=== PATIENT | female | born 1950 | race Caucasian/White ===

== ENCOUNTER 2017-04-17 11:06 | Day surgery (SDC) | payer OTHER ==
[~2017-04-17] VITALS: Ht 170.2 cm; Wt 66.5 kg
[~2017-04-17 11:06] MED LIST: ALBU17IN INH; AVEL1TAB3 PO; HYDR25TAB PO; METO50TA7 PO; NICO14DI3 TD; OFLOXACIN 0.3 % (OCUFLOX) OPTH SOL 5ML OD ONE; PHENYLEPHRINE 2.5% OPHTH SOL 2ML OD ONE; PRED20TAB PO; PROPARACAINE 0.5% OPHTH SOL 15ML OD ONE; SPIR1CAP INH; TROPICAMIDE 1% OPHTH SOLN 2ML OD ONE
[2017-04-17] MEDS ORDERED: PROAAER10 INH (13:05)
[2017-04-17] MEDS ORDERED: POVIDONE-IODINE 5% OPHTH PREP SOL 30ML As Ordered ONE (13:21)
[2017-04-17] MEDS ORDERED: BALANCED SALT IRRIGATION SOLUTION 500ML BAG (FOR OR EYE MACHINE) As Ordered ONE (13:21)
[2017-04-17] MEDS ORDERED: ACETYLCHOLINE OPHTH SOLN 1% 2ML (MIOCHOL-E) As Ordered ONE (13:21)
[2017-04-17] MEDS ORDERED: DUOVISC (0.50ML VISCOAT/0.55ML PROVISC) OPHTH KIT As Ordered ONE (13:22)
[2017-04-17] MEDS ORDERED: CEFUROXIME 1MG/0.1ML INTRACAMERAL INJ As Ordered ONE (13:22)
[2017-04-17] MEDS ORDERED: LIDOCAINE 0.75%/EPINEPHRINE 0.025% IN BSS 1ML SYR INTRACAMERAL (OR ONLY) As Ordered ONE (13:22)
[2017-04-17] MEDS ORDERED: MIDAZOLAM INJ 2 MG/2 ML VIAL (J2250) As Ordered ONE (13:27)
[2017-04-17] MEDS ORDERED: fentaNYL 100 MCG/2 ML INJECTION (J3010) As Ordered ONE (13:27)
[2017-04-17 14:35] VITALS: BP 186/98
--- NOTE | 2017-04-19 10:38 | RO ---
DATE OF PROCEDURE: 04/17/2017 PREOPERATIVE DIAGNOSIS: Visually significant nuclear sclerotic cataract right eye. POSTOPERATIVE DIAGNOSIS: Visually significant nuclear sclerotic cataract right eye. PROCEDURE: Cataract extraction with use of phacoemulsification and placement of intraocular lens, AU00T0, 22.5, right eye. SURGEON: Marcos Renee DO UTILITY MAINTENANCE WORKER: ANESTHESIA: Local with monitored anesthesia care (MAC). COMPLICATIONS: None. POSTOPERATIVE CONDITION: Stable. INDICATION FOR SURGERY: Blurred vision right eye affecting patient's activities of daily living. DESCRIPTION OF PROCEDURE: The patient was seen in the preoperative area and properly identified. The correct operative eye was identified and marked. Attention was turned to that eye. The patient received topical antibiotics in the preoperative area. The patient then received topical dilating drops consisting of tropicamide and phenylephrine. The patient was then transferred to the operating room. The correct side was re-identified. The patient received topical anesthetics and antibiotics on the surface of the eye. The eye was prepped and draped in a sterile fashion. The upper and lower eyelids were isolated with Tegaderm tape, and the lids were held open with an adjustable speculum. Using a sideport blade, a paracentesis incision was made. Intraocular preservative-free lidocaine was then injected into the anterior chamber. Viscoelastic was then injected into the anterior chamber through the paracentesis. Using a 2.4 mm sharp-tipped keratome, the anterior chamber was entered via a temporal clear corneal incision. A continuous curvilinear capsulorrhexis was created with the aid of a 26-gauge cystotome and Utrata forceps. Hydrodissection was performed with balanced salt solution (BSS) on a blunt cannula until the nucleus was freely mobile. The crystalline lens was phacoemulsified and aspirated. Additional cohesive viscoelastic was placed into the capsular bag to deepen it. A AU00T0, 22.5 lens was placed into the capsular bag and confirmed by visualizing the continuous curvilinear capsulorrhexis. Additional irrigation and aspiration was used to remove cortical material and remaining viscoelastic. The clear corneal incision was hydrated with BSS on a blunt cannula. The lens was well positioned. The incisions were then tested for leaks and found to be negative. The eye was then palpated for appropriate pressure and adjusted accordingly with BSS. The eyelid speculum was carefully removed. A shield was placed. The patient tolerated the procedure well and was discharged to the recovery unit in a stable condition. MTDD
== END 2017-04-17 14:45 | disposition home or self-care (01) ==
LOC: M SDC 11:06
PROVIDERS: ATTEND Ophthalmology
DX: H25.11 Age-related nuclear cataract, right eye (principal); K58.8 Other irritable bowel syndrome; L40.8 Other psoriasis; F17.210 Nicotine dependence, cigarettes, uncomplicated; Z79.51 Long term (current) use of inhaled steroids; Z88.8 Allergy status to other drugs, medicaments and biological substances
CPT/HCPCS: 66984; J2250; J3010; V2632

== ENCOUNTER 2017-08-14 20:08 | Emergency (ER) | payer OTHER, MEDICARE ==
[2017-08-14 20:37] LABS: BASO # 0.1 10^3/uL (0.0-0.2); BASO % 0.9 % (0.0-1.0); EOS % 0.2 % (0.0-3.0); HEMOGLOBIN 14.1 g/dl (12.0-16.0); IMMATURE GRANULOCYTE % 0.5 % (0-3.0); LYMPH # 0.9 10^3/uL (1.5-4.5); LYMPH % 9.5 % (24.0-44.0); MEAN CORPUSCULAR HEMOGLOBIN 32.7 pg (27.0-33.0); MEAN CORPUSCULAR HGB CONC 34.4 g/dl (32.0-36.5); MEAN CORPUSCULAR VOLUME 95.1 fl (80.0-96.0); MONO # 0.5 10^3/uL (0.0-0.8); MONO % 5.6 % (0.0-5.0); NEUTROPHILS # 7.8 10^3/uL (1.8-7.7); NEUTROPHILS % 83.3 % (36.0-66.0); PLATELET COUNT, AUTOMATED 185 10^3/uL (150-450); RED BLOOD COUNT 4.31 10^6/uL (4.00-5.40); RED CELL DISTRIBUTION WIDTH 11.9 % (11.5-14.5); WHITE BLOOD COUNT 9.4 10^3/uL (4.0-10.0)
[2017-08-14 20:40] LABS: KETONE, URINE AUTO RFX TRACE mg/dL (NEGATIVE); LEUKOCYTE ESTERASE UR AUTO RFX NEGATIVE (NEGATIVE); NITRITE, URINE AUTO RFX NEGATIVE (NEGATIVE); RBC, URINE AUTO RFX 1 /HPF (0-3); SPECIFIC GRAVITY UR AUTO RFX 1.004 (1.002-1.035); SQUAM EPITHELIAL CELL UR AURFX 0 /HPF (0-6); WBC, URINE AUTO RFX 1 /HPF (0-3)
[2017-08-14] MEDS: NS 1,000 ML IV (20:45)
[2017-08-14 20:46] LABS: INR 0.95; PROTHROMBIN TIME 12.7 SECONDS (12.4-14.5)
[2017-08-14 21:01] LABS: ALBUMIN 4.4 GM/DL (3.2-5.2); ALBUMIN/GLOBULIN RATIO 1.38 (1.00-1.93); ALKALINE PHOSPHATASE 93 U/L (45-117); ALT/SGPT 28 U/L (12-78); ANION GAP 7 MEQ/L (8-16); AST/SGOT 26 U/L (7-37); BILIRUBIN,DIRECT 0.2 MG/DL (0.0-0.2); BILIRUBIN,TOTAL 0.5 MG/DL (0.2-1.0); BLOOD UREA NITROGEN 12 MG/DL (7-18); CARBON DIOXIDE LEVEL 29 MEQ/L (21-32); CHLORIDE LEVEL 100 MEQ/L (98-107); CREATININE FOR GFR 0.62 MG/DL (0.55-1.30); GLOMERULAR FILTRATION RATE > 60.0 (>45); GLUCOSE, FASTING 100 MG/DL (70-100); LIPASE 253 U/L (73-393); POTASSIUM SERUM 3.9 MEQ/L (3.5-5.1); SODIUM LEVEL 136 MEQ/L (136-145); TOTAL PROTEIN 7.6 GM/DL (6.4-8.2)
[2017-08-14] MEDS: ONDANSETRON 4MG/2ML VIAL (J2405) IV (21:16)
[2017-08-14] MEDS: MORPHINE 2 MG/ML 1ML SYRINGE (J2270) IV ×3 (21:19→22:18)
[2017-08-14] MEDS: KETOROLAC 30 MG/ML VIAL (J1885) IV (21:20)
[2017-08-14] MEDS: LABETALOL HCL 100 MG/20 ML VIAL IV (21:33)
[2017-08-14] MEDS: NORCO 5/325MG TABLET (BULK FOR ED) PO (21:45)
== END 2017-08-14 22:53 | disposition home or self-care (01) ==
LOC: M ED 20:08
DX: N20.1 Calculus of ureter (principal); I10 Essential (primary) hypertension; I25.10 Atherosclerotic heart disease of native coronary artery without angina pectoris; Z88.8 Allergy status to other drugs, medicaments and biological substances
CPT/HCPCS: J2405

== ENCOUNTER → 2017-08-20 | Outpatient (REF) | payer OTHER, MEDICARE ==
[2017-08-20 13:22] LABS: AMORPHOUS SEDIMENT SMALL (NEGATIVE); APPEARANCE, URINE HAZY (CLEAR); BACTERIA, URINE AUTO 1+ (NEGATIVE); BILIRUBIN, URINE AUTO NEGATIVE (NEGATIVE); BLOOD, URINE BLOOD 1+ (NEGATIVE); COLOR, URINE YELLOW (YELLOW); GLUCOSE, URINE (UA) AUTO NEGATIVE (NEGATIVE); KETONE, URINE AUTO NEGATIVE (NEGATIVE); LEUKOCYTE ESTERASE, URINE AUTO TRACE (NEGATIVE); NITRITE, URINE AUTO NEGATIVE (NEGATIVE); PROTEIN, URINE AUTO 1+ mg/dL (NEGATIVE); RBC, URINE AUTO 2 /HPF (0-3); SPECIFIC GRAVITY URINE AUTO 1.006 (1.002-1.035); SQUAMOUS EPITHELIAL CELL UR AU 5 /HPF (0-6); UROBILINOGEN, URINE AUTO 0.2 mg/dL (0.0-2.0); WBC, URINE AUTO 8 /HPF (0-3)
== END ==
LOC: M SMT 12:36
DX: N20.0 Calculus of kidney (principal)
CPT/HCPCS: 81001

== ENCOUNTER → 2017-10-03 | Outpatient (CLI) | payer OTHER | LOC: M RAD 09:27 | DX: I71.4 Abdominal aortic aneurysm, without rupture (principal) | CPT/HCPCS: 76775 ==

== ENCOUNTER → 2018-03-12 | Outpatient (CLI) | payer OTHER | LOC: M RAD 09:56 | DX: I71.4 Abdominal aortic aneurysm, without rupture (principal) | CPT/HCPCS: 76775 ==

== ENCOUNTER → 2018-04-16 | Outpatient (CLI) | payer OTHER | LOC: M RAD 10:54 | DX: I70.213 Atherosclerosis of native arteries of extremities with intermittent claudication, bilateral legs (principal); Z95.820 Peripheral vascular angioplasty status with implants and grafts | CPT/HCPCS: 93925 ==

== ENCOUNTER → 2018-05-04 | Outpatient (CLI) | payer OTHER ==
[~2018-05-04] MED LIST changes: -ALBU17IN INH; -AVEL1TAB3 PO; +HEPARIN 1,000 UNITS/ML 10ML VIAL (FOR RADIOLOGY& DIALYSIS ONLY) As Ordered; -HYDR25TAB PO; +ISOVUE-300 61% 50ML VIAL (Q9967) As Ordered; +LIDOCAINE 2% MDV 20 ML VIAL As Ordered; -METO50TA7 PO; +MIDAZOLAM INJ 2 MG/2 ML VIAL (J2250) As Ordered; -NICO14DI3 TD; -OFLOXACIN 0.3 % (OCUFLOX) OPTH SOL 5ML OD ONE; -PHENYLEPHRINE 2.5% OPHTH SOL 2ML OD ONE; -PRED20TAB PO; -PROPARACAINE 0.5% OPHTH SOL 15ML OD ONE; -SPIR1CAP INH; -TROPICAMIDE 1% OPHTH SOLN 2ML OD ONE; +fentaNYL 100 MCG/2 ML INJECTION (J3010) As Ordered
[2018-05-04 08:29] LABS: MEAN CORPUSCULAR HEMOGLOBIN 33.2 pg (27.0-33.0); MEAN CORPUSCULAR VOLUME 94.8 fl (80.0-96.0); PLATELET COUNT, AUTOMATED 177 10^3/uL (150-450); RED BLOOD COUNT 4.22 10^6/uL (4.00-5.40); RED CELL DISTRIBUTION WIDTH 12.1 % (11.5-14.5); WHITE BLOOD COUNT 9.3 10^3/uL (4.0-10.0)
[2018-05-04 08:47] LABS: ANION GAP 12 MEQ/L (8-16); BLOOD UREA NITROGEN 17 MG/DL (7-18); CALCIUM LEVEL 8.8 MG/DL (8.8-10.2); CARBON DIOXIDE LEVEL 26 MEQ/L (21-32); CHLORIDE LEVEL 89 MEQ/L (98-107); CREATININE FOR GFR 1.29 MG/DL (0.55-1.30); GLUCOSE, FASTING 89 MG/DL (70-100); POTASSIUM SERUM 3.5 MEQ/L (3.5-5.1); SODIUM LEVEL 127 MEQ/L (136-145)
== END | disposition home or self-care (01) ==
LOC: M IRPRO 07:46
DX: I70.213 Atherosclerosis of native arteries of extremities with intermittent claudication, bilateral legs (principal); N18.9 Chronic kidney disease, unspecified; I71.4 Abdominal aortic aneurysm, without rupture
CPT/HCPCS: 36200

== ENCOUNTER → 2018-07-13 | Outpatient (CLI) | payer MEDICARE ==
[~2018-07-13] MED LIST changes: +ALBU17IN INH; +AMLO10TA5 PO; +ASPI81TA21 PO; +AVEL1TAB3 PO; +CLON0.2T PO; -HEPARIN 1,000 UNITS/ML 10ML VIAL (FOR RADIOLOGY& DIALYSIS ONLY) As Ordered; +HYDR25TAB PO; -ISOVUE-300 61% 50ML VIAL (Q9967) As Ordered; -LIDOCAINE 2% MDV 20 ML VIAL As Ordered; +LOPR1TAB6 PO; +LOSA100T5 PO; +LOSA25TA14 PO; +METO50TA7 PO; -MIDAZOLAM INJ 2 MG/2 ML VIAL (J2250) As Ordered; +NICO14DI3 TD; +NORCOTAB PO; +PRED20TAB PO; +PROAAER10 INH; +SPIR1CAP INH; +ZOFR4TAB14 PO; -fentaNYL 100 MCG/2 ML INJECTION (J3010) As Ordered
== END ==
LOC: M RAD 12:42
PROVIDERS: ATTEND Surgery Vascular Surgery
DX: I70.213 Atherosclerosis of native arteries of extremities with intermittent claudication, bilateral legs (principal)

== ENCOUNTER → 2018-07-24 | Outpatient (CLI) | payer MEDICARE ==
[~2018-07-24] MED LIST changes: +HEPARIN 1,000 UNITS/ML 10ML VIAL (FOR RADIOLOGY& DIALYSIS ONLY) As Ordered ONE; +ISOVUE-300 61% 50ML VIAL (Q9967) As Ordered ONE; +KCL 10MEQ/100ML SWI (KRUN) 100 ML IV SCH; +LIDOCAINE 2% MDV 20 ML VIAL As Ordered ONE; +MIDAZOLAM INJ 2 MG/2 ML VIAL (J2250) As Ordered ONE; +POTASSIUM CHLORIDE 10 MEQ SR TABLET PO ONE; +diazePAM 5 MG TAB As Ordered ONE; +fentaNYL 100 MCG/2 ML INJECTION (J3010) As Ordered ONE
[2018-07-24 10:45] LABS: HEMATOCRIT 38.7 % (36.0-47.0); HEMOGLOBIN 13.4 g/dl (12.0-15.5); MEAN CORPUSCULAR HEMOGLOBIN 32.2 pg (27.0-33.0); MEAN CORPUSCULAR HGB CONC 34.6 g/dl (32.0-36.5); PLATELET COUNT, AUTOMATED 290 10^3/uL (150-450); RED BLOOD COUNT 4.16 10^6/uL (4.00-5.40); WHITE BLOOD COUNT 10.3 10^3/uL (4.0-10.0)
[2018-07-24 11:08] LABS: CALCIUM LEVEL 8.2 MG/DL (8.8-10.2); CREATININE FOR GFR 1.17 MG/DL (0.55-1.30); GLOMERULAR FILTRATION RATE 49.3 (>45); POTASSIUM SERUM 2.3 MEQ/L (3.5-5.1)
--- NOTE | 2018-08-05 13:30 | REPIR ---
DATE OF PROCEDURE: 07/24/2018 ATTENDING SURGEON: Dr. Phyllis Abbott RN PRIMARY CARE: Dominik Carbajal and Aliyah Mcelroy PREOPERATIVE DIAGNOSES: Right lower extremity pain. Chronic renal insufficiency. POSTOPERATIVE DIAGNOSES: Right lower extremity pain. Chronic renal insufficiency. PROCEDURE: Selective right common femoral artery catheter placement with right lower extremity angiogram. Right superficial femoral artery angioplasty with 7 x 40 mm balloon. MYNX closure of the left common femoral arteriotomy. INDICATION: The patient is a 68-year-old female with right lower extremity pain and claudication as well as chronic renal insufficiency. The patient will undergo a right lower extremity angiogram with possible angioplasty, stent and/or atherectomy. Risks, benefits, and alternative options were discussed with the patient. ANESTHESIA: Local sedation with 4 mg Versed, 200 mcg of fentanyl and 20 mL of 2% lidocaine. FLUORO TIME: 21.3 minutes. CONTRAST: 7 mL of Isovue-300. SEDATION TIME: Was from 12:04 p.m. to 2:23 p.m. COMPLICATIONS: None. DRAINS: None. SPECIMENS: None. IMPLANT: Left common femoral arteriotomy closure with a MYNX closure device. PROCEDURE: Patient was taken to the angiography suite, placed supine on the angiography room table and the patient was prepped and draped in a standard surgical fashion. Left common femoral artery was cannulated with a micropuncture needle after anesthetizing the overlying skin with 2% lidocaine. A micropuncture wire was advanced through the micropuncture needle which was upsized to a micropuncture sheath. A Bentson wire was advanced through the micropuncture sheath which was upsized to a 5-Tamazight sheath. An Omni Flush catheter was advanced up and over the bifurcation of the iliac arteries, placed in the right common femoral artery and the right lower extremity angiogram was performed. This showed right superficial femoral artery high-grade stenosis which was angioplastied with 7 x 40 mm balloon and a completion angiogram showed resolution of the stenosis. Catheters and wires were removed. The left common femoral arteriotomy closure was performed with the MYNX closure device with an additional 10 minutes of adjunctive pressure applied for hemostasis. Dressings were then applied. The patient tolerated the procedure well. All instrument, sponge, needle counts were correct at the end of the case. There were no complications. Dr. Abbott was present for and directed the entire case. The patient was transferred to the holding area and subsequently discharged in stable condition.
== END | disposition home or self-care (01) ==
LOC: M IRPRO 09:16
PROVIDERS: ATTEND Surgery Vascular Surgery
DX: I70.211 Atherosclerosis of native arteries of extremities with intermittent claudication, right leg (principal); N18.9 Chronic kidney disease, unspecified
CPT/HCPCS: 37224; 75710; 84132; 85027; C1725; C1760; C1769; C1773; C1874; C1887; C1894; J2250; J3010; Q9967

== ENCOUNTER → 2018-08-05 | Outpatient (CLI) | payer MEDICARE ==
[~2018-08-05] MED LIST changes: -HEPARIN 1,000 UNITS/ML 10ML VIAL (FOR RADIOLOGY& DIALYSIS ONLY) As Ordered ONE; -ISOVUE-300 61% 50ML VIAL (Q9967) As Ordered ONE; -KCL 10MEQ/100ML SWI (KRUN) 100 ML IV SCH; -LIDOCAINE 2% MDV 20 ML VIAL As Ordered ONE; -MIDAZOLAM INJ 2 MG/2 ML VIAL (J2250) As Ordered ONE; -POTASSIUM CHLORIDE 10 MEQ SR TABLET PO ONE; -diazePAM 5 MG TAB As Ordered ONE; -fentaNYL 100 MCG/2 ML INJECTION (J3010) As Ordered ONE
--- NOTE | 2018-08-05 10:09 | REP ---
Urinary tract sonography with renal artery Doppler assessment: History: Essential primary hypertension. Morphologic findings: The urinary bladder is empty at the time of scanning. Renal cortical echogenicity pattern is normal. Right kidney dimensions are 9.6 x 4.4 x 2.8 cm. The left renal measurements are 12.4 x 6.5 x 5.5 cm. No hydronephrosis seen on either side. Mild cortical atrophy is suspected on the right. There are multiple cortical cysts bilaterally. The largest on the left measures 1.8 cm in greatest diameter. The largest on the right measures 0.9 cm in greatest diameter. No mass lesion is visible. Renal artery Doppler flow study: Peak systolic flow velocity in the abdominal aorta at the level of the main renal arteries is normal at 259.9 cm/sec. Abdominal aortic aneurysm is noted at the level of the main renal artery origins. There is evidence of a early bifurcation of the right main renal artery. The study is somewhat inhibited by bowel gas. Peak systolic flow velocity in the left main renal artery is 145 cm/s and that on the right is 67.0 cm/sec. Renal to aortic flow velocity ratios are therefore in the normal range at 1.1 on the right and 2.4 on the left. However, there is a tardus parvus wave form observed bilaterally in the renal artery Doppler tracings. Resistive indices and acceleration times are measured in the intralobar arteries of the upper, mid and lower pole of each kidney. Acceleration times are somewhat increased and resistive indices are somewhat increased on the right. Normal on the left. Impression: Findings suggestive of possible bilateral artery stenosis. Study is inhibited to some degree by bowel gas. Abdominal aortic aneurysm at the main renal artery origin level. Electronically Signed by Jeremy Mcmahon MD 08/05/2018 10:16 A
== END ==
LOC: M RAD 08:19
PROVIDERS: ATTEND Nurse Practitioner Family
DX: I10 Essential (primary) hypertension (principal)

== ENCOUNTER 2018-08-25 07:51 | Observation (INO) | payer MEDICARE ==
[2018-08-25] MEDS ORDERED: fentaNYL 100 MCG/2 ML INJECTION (J3010) As Ordered ONE ×3 (08:27→13:45)
[2018-08-25] MEDS ORDERED: ISOVUE-300 61% 50ML VIAL (Q9967) As Ordered ONE (08:28)
[2018-08-25] MEDS ORDERED: LIDOCAINE 2% MDV 20 ML VIAL As Ordered ONE ×2 (08:28→10:47)
[2018-08-25] MEDS ORDERED: HEPARIN 1,000 UNITS/ML 10ML VIAL (FOR RADIOLOGY& DIALYSIS ONLY) As Ordered ONE ×2 (08:28→11:30)
[2018-08-25] MEDS ORDERED: MIDAZOLAM INJ 2 MG/2 ML VIAL (J2250) As Ordered ONE ×3 (08:28→13:45)
[2018-08-25 08:39] LABS: HEMATOCRIT 40.5 % (36.0-47.0); MEAN CORPUSCULAR HEMOGLOBIN 30.8 pg (27.0-33.0); MEAN CORPUSCULAR HGB CONC 32.1 g/dl (32.0-36.5); PLATELET COUNT, AUTOMATED 271 10^3/uL (150-450); RED BLOOD COUNT 4.22 10^6/uL (4.00-5.40); WHITE BLOOD COUNT 9.7 10^3/uL (4.0-10.0)
[2018-08-25 09:02] LABS: CALCIUM LEVEL 7.7 MG/DL (8.8-10.2); CREATININE FOR GFR 1.19 MG/DL (0.55-1.30); GLOMERULAR FILTRATION RATE 48.3 (>45); POTASSIUM SERUM 3.6 MEQ/L (3.5-5.1)
[2018-08-25] MEDS ORDERED: diphenhydrAMINE INJ 50MG/ML VIAL (J1200) As Ordered ONE (09:36)
[2018-08-25] MEDS ORDERED: PROTAMINE SULF INJ 50 MG/5 ML VIAL (J2720) As Ordered ONE (09:37)
[2018-08-25] MEDS ORDERED: LIDOCAINE 1% SDV INJ 30 ML VIAL As Ordered ONE (12:44)
[2018-08-25] MEDS ORDERED: BUPIVACAINE HCL 0.5% 30 ML VIAL As Ordered ONE (12:44)
[2018-08-25] MEDS ORDERED: THROMBIN SOLN 20,000 UNITS KIT As Ordered ONE (13:30)
[2018-08-25] MEDS ORDERED: LIDOCAINE 2% INJ 100 MG/5 ML SDV (FOR ANES.) As Ordered ONE (13:45)
[2018-08-25] MEDS ORDERED: KETAMINE HCL 200 MG/20 ML VIAL As Ordered ONE (13:45)
[2018-08-25] MEDS ORDERED: LABETALOL HCL 100 MG/20 ML VIAL As Ordered ONE (14:05)
[2018-08-25] MEDS: LABETALOL HCL 100 MG/20 ML VIAL IV SCH ×5 (14:06→14:50)
[2018-08-25] MEDS ORDERED: PERCOCET 5MG/325MG TAB As Ordered ONE (14:10)
[2018-08-25] MEDS ORDERED: PERCOCET 5MG/325MG TAB PO PRN (14:30)
[2018-08-25] MEDS ORDERED: METOCLOPRAMIDE INJ 10MG/2ML VIAL (J2765) IV PRN (14:30)
[2018-08-25] MEDS ORDERED: LR 1,000 ML IV SCH (14:30)
[2018-08-25] MEDS ORDERED: ONDANSETRON 4MG/2ML VIAL (J2405) IV PRN (14:30)
[2018-08-25 14:58] VITALS: BP 145/65
[2018-08-25 15:30] VITALS: BP 156/69
[2018-08-25 16:30] VITALS: BP 149/69
[2018-08-25] MEDS ORDERED: D5W/0.45% SODIUM CHLORIDE 1,000 ML IV SCH (17:30)
[2018-08-25 18:00] VITALS: BP 157/74
[2018-08-25] MEDS: ACETAMINOPHEN TAB 650MG DOSE (2X325MG) PO PRN ×2 (18:09→22:53)
[2018-08-25 22:00] VITALS: BP 149/66
[2018-08-26 02:00] VITALS: BP 182/72
[2018-08-26] MEDS: ACETAMINOPHEN TAB 650MG DOSE (2X325MG) PO PRN ×2 (04:53→09:40)
[2018-08-26 06:00] VITALS: BP 184/90
[2018-08-26] MEDS ORDERED: LOSARTAN 50 MG TAB PO SCH (09:00)
[2018-08-26] MEDS ORDERED: hydroCHLOROthiazide 25 MG TAB PO SCH (09:00)
[2018-08-26 10:00] VITALS: BP 200/90
[2018-08-26] MEDS ORDERED: LOSA100T50 PO (12:43)
[2018-08-26 12:44] VITALS: BP 200/90
[2018-08-26] MEDS ORDERED: NORC1TAB4 PO (13:18)
--- NOTE | 2018-09-08 13:12 | REPIR ---
DATE OF PROCEDURE: 08/25/2018 PREOPERATIVE DIAGNOSES: Abdominal aortic aneurysm status post endovascular abdominal aortic aneurysm repair, hypertension, chronic renal insufficiency stage III, ultrasound demonstrating bilateral renal artery stenosis. POSTOPERATIVE DIAGNOSES: Abdominal aortic aneurysm status post endovascular abdominal aortic aneurysm repair, hypertension, chronic renal insufficiency stage III, ultrasound demonstrating bilateral renal artery stenosis. PROCEDURE: Ultrasound-guided left brachial artery cannulation, selective left renal artery new for her EEG with an EEA catheter placement with angiogram, left renal artery angioplasty and stent with a 5 x 19 Express SD stent, attempted left common femoral arterial cannulation, right common femoral arterial cannulation, aorta catheter placement with aortogram, attempted right renal artery selective cannulation, Mynx closure of the left brachial artery with a 6-Malian Mynx closure device, Mynx closure of the right common femoral arteriotomy with a 5-Malian Mynx closure device. SURGEON: Dr. Phyllis Abbott ONION TIER: Mildred Jameson and Aliyah Kelley INDICATION: The patient is a 68-year-old female with history of an abdominal aortic aneurysm that was repaired with an endovascular repair who now has uncontrolled hypertension and who underwent renal artery ultrasound demonstrating bilateral renal artery stenosis. The patient also has chronic renal insufficiency, stage III. The patient will undergo a renal artery angiogram with possible angioplasty, stenting and/or atherectomy. Risks, benefits and alternative treatment options were discussed with the patient. Anesthesia was local with sedation with 2 mg Versed, 100 mcg of fentanyl and 30 mL of 2% lidocaine. FLUOROSCOPIC TIME: 42.2 minutes. CONTRAST: 13 mL of Isovue-300. SEDATION TIME: 9:52 a.m. to 12:18 p.m. HEPARIN: 7000 units followed by an additional 3000 units bolus and an additional 3000 units bolus for a total of 13,000, protamine 50 mg, Benadryl 50 mg. DRAINS: None. SPECIMENS: None. IMPLANTS: Right common femoral arteriotomy closure with a 5-Malian Mynx closure device, left brachial artery arteriotomy closure with a 6-Malian Mynx closure device. COMPLICATIONS: Left arm hematoma. PROCEDURE: The patient was taken to the angiography suite, placed supine on the angiography room table and then prepped and draped in a standard surgical fashion. Time-out was then conducted by myself and team members in the room confirming the correct patient, procedure and laterality. Ultrasound was used to evaluate the left brachial artery, which was noted to be widely patent, easily compressible and free of thrombus. Ultrasound was then used guide cannulation of the left brachial artery with a micropuncture needle after anesthetizing the overlying skin with 2% lidocaine. Ultrasound was used to guide cannulation with real-time concurrent visualization of the entry of micropuncture needle into the left brachial artery with a hard copy image preserved. The micropuncture wire was advanced through the micropuncture needle, which was upsized to a micropuncture sheath. A Bentson wire was advanced through the micropuncture sheath, which was upsized to a 5-Malian sheath. A Bentson wire and Omni flush catheter were used to traverse through the brachial artery, axillary artery, subclavian artery and into the descending thoracic aortic artery selectively. The angled glide catheter and wire were then used to selectively cannulate the left renal artery and angiogram was performed showing a high-grade stenosis at the origin, which was just above the previously placed Endograft. The left renal artery was then angioplastied and stented with a 6 x 19 Express SD stent with a completion angiogram showing resolution of the stenosis with excellent flow through the left renal artery. The right renal artery was attempted to be cannulated from the brachial approach but due to the angulation of the aorta and the presence of the endograft, cannulation was not possible. The left femoral and right femoral regions were then prepped and draped. Attempts were made to cannulate the left common femoral artery, which were unsuccessful due to extensive scar tissue. The right common femoral artery was then cannulated with a micropuncture needle after anesthetizing the overlying skin with 2% lidocaine and using ultrasound guidance. The ultrasound showed the right common femoral artery be widely patent, easily compressible and free of thrombus. Ultrasound was used to guide cannulation with real-time concurrent visualization of the entry of the needle into the right common femoral artery with a hard copy image preserved. The micropuncture wire was advanced to the micropuncture needle, which was upsized to a micropuncture sheath. A Bentson wire was advanced through the micropuncture sheath, which was upsized to a 5-Malian sheath. An Omni flush catheter was placed in the aorta and an aortogram was performed. The right renal artery was then attempted to be selectively cannulated. There was ability to pass the wire but the catheter was unable to be passed into the renal artery due to the angulation and degree of stenosis. After 42.2 minutes of fluor time, the procedure was aborted. Catheters and wires were removed. The Mynx closure device was used to close the arteriotomy in the left brachial artery with an additional 10 minutes of adjunctive pressure applied for hemostasis. Dressings were then applied. The right common femoral arteriotomy site was closed using a 5-Malian Mynx closure device with an additional 10 minutes of adjunctive pressure applied for hemostasis. Dressings were applied. During closure of the right common femoral artery, the patient developed a hematoma in the left upper extremity, which was controlled with compression and the hematoma was no longer enlarging after being controlled with compression. The patient was transferred to the holding area in stable condition. While being monitored in the holding area, the patient noticed some numbness and tingling in her left hand. There were good brachial, radial and ulnar pulses in the left upper extremity and good perfusion of the left hand but due to the presence of the hematoma the decision was made to take the patient to the operating room and evacuate the hematoma to avoid nerve injury. The patient was then taken to the operating room to undergo evacuation of the left upper arm hematoma. RADIOLOGY SUPERVISION INTERPRETATION: The ultrasound showed the left brachial artery to be widely patent, easily compressible and free of thrombus. Ultrasound was used to guide cannulation of the left brachial artery with a real-time concurrent visualization of the entry of the micropuncture needle into the left brachial artery with a hard copy image preserved. Catheter was placed in the aorta and aortogram was performed showing the renal arteries to be patent but stenotic. The Endograft was patent and there appeared to be no type 1 endoleak visualized. Minimal contrast was used due to the patient's chronic renal insufficiency, stage III. The left radial artery was then selectively cannulated, angiogram performed showing the high-grade stenosis at the origin and the left renal artery was then angioplastied and stented with a 5 x 19 Express SD stent. Attempts were made to cannulate the right renal artery from the brachial approach without success due to the angulation of the aorta and the presence of the Endograft. A cannulation was attempted of the left common femoral artery without success due to extensive scar tissue. The right common femoral artery was then cannulated using ultrasound guidance. The ultrasound showed the right common femoral artery to be widely patent, easily compressible and free of thrombus. Ultrasound was used to guide cannulation with real-time concurrent visualization of the into the needle into the right common femoral artery. Catheter was placed in the aorta and aortogram was performed. The right renal artery was then attempted to be cannulated without success. Catheters and wires were removed and Mynx closure devices were used close the arteriotomy in the right common femoral artery, as well as the arteriotomy in the left brachial artery.
--- NOTE | 2018-09-08 13:22 | RO ---
DATE OF PROCEDURE: 08/25/2018 ATTENDING SURGEON: Phyllis Abbott MD YARDAGE TUFTING MACHINE OPERATOR: None. PREOPERATIVE DIAGNOSES: Left hand numbness, left brachial artery cannulation with left upper extremity hematoma. POSTOPERATIVE DIAGNOSES: Left hand numbness, left brachial artery cannulation with left upper extremity hematoma. PROCEDURE: Left brachial artery exploration with closure of the arteriotomy, evacuation of left upper arm hematoma. INDICATION: The patient is a 68-year-old female with hypertension, abdominal aortic aneurysm, who is status post endovascular abdominal aortic aneurysm repair, stage III chronic renal insufficiency, who underwent ultrasound evaluation which showed high-grade stenosis in the renal arteries. The patient underwent a radial artery angiogram via a combined right common femoral artery approach and left brachial artery approach and subsequent angioplasty and stenting of the left renal artery. The patient developed hematoma in her left upper arm, which was controlled with compression, but subsequently the patient developed numbness and tingling in the left fingers and thumb and will undergo evacuation of the hematoma to avoid permanent nerve damage and left hand numbness and tingling. Risks, benefits, and alternative treatment options were discussed with the patient. ANESTHESIA: Was local monitored anesthesia care (MAC). ESTIMATED BLOOD LOSS: 30 mL. INTRAVENOUS (IV) FLUIDS: 500 mL. HEPARIN: None. COMPLICATIONS: None. DRAINS: None. SPECIMENS: None. IMPLANTS: #10 Mario-Reddy (ROOSEVELT). DESCRIPTION OF PROCEDURE: The patient was taken to the operating room, placed supine on the operating room table, and then prepped and draped in a standard surgical fashion. An incision was made over the cannulation site of the left brachial artery with a scalpel after anesthetizing the overlying skin with 1% lidocaine mixed with 0.5% Marcaine. The incision was carried down sharply to the brachial artery, which was identified and sharply dissected proximally and distally. There was no active bleeding from the brachial artery, but the arteriotomy site was visualized, and a 6-0 Prolene suture was placed at the arteriotomy site to avoid future bleeding. The hematoma which was above the biceps muscle in the subcutaneous space was then evacuated through the incision with removal of approximately 100 mL of clot. A #10 ROOSEVELT was then placed in the hematoma cavity after the deeper layers were closed using a 2-0 Vicryl over the brachial artery. The incision was then closed using 3-0 Monocryl and running subcuticular fashion with the #10 ROOSEVELT exiting from the inferior aspect of the incision. Dressings were then applied. The patient tolerated the procedure well. All instrument, sponge, and needle counts were correct at the end the case. There were no complications. Dr. Abbott was present for and directed the entire case. The patient was transferred to the recovery room awake, alert, extubated, and in stable condition with good perfusion of her left upper extremity and no further numbness and tingling in the left fingers and thumb.
== END 2018-08-26 14:36 | disposition home or self-care (01) ==
LOC: M IRPRO 07:51 → M MSPAV 13:55
PROVIDERS: ADMIT Surgery Vascular Surgery; ATTEND Surgery Vascular Surgery
DX: L76.32 Postprocedural hematoma of skin and subcutaneous tissue following other procedure (principal); I97.638 Postprocedural hematoma of a circulatory system organ or structure following other circulatory system procedure; R20.0 Anesthesia of skin; I71.4 Abdominal aortic aneurysm, without rupture; I12.9 Hypertensive chronic kidney disease with stage 1 through stage 4 chronic kidney disease, or unspecified chronic kidney disease; N18.3 Chronic kidney disease, stage 3 (moderate)
CPT/HCPCS: 10140; 35860; 80048; 85027; C1760; C1769; C1876; C1887; C1894; G0378; J1200; J2250; J2720; J3010; Q9967

== ENCOUNTER → 2018-09-17 | Outpatient (CLI) | payer MEDICARE ==
[~2018-09-17] MED LIST changes: +HYDR-2541 PO; +HYDR-3715 PO; -HYDR25TAB PO; +LOSA100T50 PO; +NORC1TAB7 PO; -NORCOTAB PO
--- NOTE | 2018-09-18 06:09 | REP ---
Clinical: Hypertension and chronic medical renal disease. Technique: Robison scale and color Doppler evaluation of the kidneys and renal vasculature using curved array transducer. Findings: The right kidney is atrophic and measures 8.8 x 3.8 x 3.8 cm without hydronephrosis and includes the upper pole 6 mm cyst along with lower pole 7 mm cyst and 1.3 cm cyst. The left kidney is normal in reniform shape without hydronephrosis and measures 12.1 x 6.6 x 4.9 cm with 1 cm mid pole cyst, 9 mm lower pole cyst and 1.6 cm lower pole cyst. Color Doppler evaluation of the renal vasculature is significantly limited due to motion artifact as well as extensive atherosclerotic changes and aortic aneurysm. The right intrarenal arterial wave patterns demonstrate a tardus parvus wave form and the decreased right arterial velocity raises the possibility of renal artery stenosis. There is a history of left stent placement and the left renal velocities, renal aortic ratio, resistive indices and acceleration times are within normal range. Right Kidney: Peak arterial velocity: 48 . Renal aortic ratio: 0.7 . Resistive indices: 0.51 - 0.57 . Acceleration times: 0.040 - 0.088 . Left kidney: Peak arterial velocity: 124 . Renal aortic ratio: 1.9 . Resistive indices: 0.69 - 0.74 . Acceleration times: 0.040 - 0.056 . Impression: 1. Atrophic right kidney with few small cysts measuring up to 1.3 cm in the lower pole. Doppler interrogation of the right kidney is limited and renal arterial stenosis cannot be excluded. 2. Left kidney is normal in reniform shape and size and demonstrates multiple cysts up to 1.6 cm in the lower pole. There is a history of left renal artery stent placement and Doppler interrogation is within normal range and without evidence for left renal arterial stenosis. Electronically Signed by Ricky Yang MD 09/18/2018 06:01 A
== END ==
LOC: M RAD 08:47
PROVIDERS: ATTEND Surgery Vascular Surgery
DX: I70.1 Atherosclerosis of renal artery (principal); N26.1 Atrophy of kidney (terminal); N28.1 Cyst of kidney, acquired; Z95.828 Presence of other vascular implants and grafts

== ENCOUNTER 2019-03-11 08:09 | Day surgery (SDC) | payer MEDICARE ==
[~2019-03-11] VITALS: Ht 167.6 cm; Wt 68.4 kg
[~2019-03-11 08:09] MED LIST changes: +BALANCED SALT IRRIGATION SOLUTION 500ML BAG (FOR OR EYE MACHINE) As Ordered ONE; +CARV12.5 PO; +CLOP75TA2 PO; +DUOVISC (0.50ML VISCOAT/0.55ML PROVISC) OPHTH KIT As Ordered ONE; +ISOS30TA4 PO; +LIDOCAINE 0.75%/EPINEPHRINE 0.025% IN BSS 0.8ML SYR INTRACAMERAL--OR ONLY As Ordered ONE; +MIDAZOLAM INJ 2 MG/2 ML VIAL (J2250) As Ordered ONE; +OFLOXACIN 0.3 % (OCUFLOX) OPTH SOL 5ML OS ONE; +PHENYLEPHRINE 2.5% OPHTH SOL 2ML OS ONE; +POVIDONE-IODINE 5% OPHTH PREP SOL 30ML As Ordered ONE; +PROPARACAINE 0.5% OPHTH SOL 15ML OS ONE; +TROPICAMIDE 1% OPHTH SOLN 2ML OS ONE; +VALS320T PO; +fentaNYL 100 MCG/2 ML INJECTION (J3010) As Ordered ONE
[2019-03-11] MEDS ORDERED: CEFUROXIME 1MG/0.1ML INTRACAMERAL INJ As Ordered ONE (09:18)
[2019-03-11 10:05] VITALS: BP 171/85
--- NOTE | 2019-03-16 18:06 | RO ---
DATE OF PROCEDURE: 03/11/2019 PREOPERATIVE DIAGNOSIS: 1. Visually significant nuclear sclerotic cataract left eye. POSTOPERATIVE DIAGNOSIS: 1. Visually significant nuclear sclerotic cataract left eye. PROCEDURE: 1. Cataract extraction with use of phacoemulsification and placement of intraocular lens, AU00T0, 22.0 D, left eye. SURGEON: Marcos Renee DO TOBACCO PACKER: None. ANESTHESIA: Local with monitored anesthesia care (MAC). COMPLICATIONS: None. POSTOPERATIVE CONDITION: Stable. INDICATIONS FOR SURGERY: 1. Blurred vision affecting patients activities of daily living. DESCRIPTION OF PROCEDURE: The patient was seen in the preoperative area and properly identified. The correct operative eye was identified and marked. The patient received topical anesthetic, antibiotics, and topical dilating drops. The patient was then transferred to the operating room. The correct side was re-identified, and a time-out was performed. The eye was prepped and draped in a sterile fashion. The eyelids were isolated with Tegaderm tape, and the lids were held open with an adjustable speculum. A 1.0 mm paracentesis incision was made. Intraocular preservative-free Shugarcaine was then injected into the anterior chamber. Viscoelastic was then injected into the anterior chamber through the paracentesis. Using a 2.4 mm sharp-tipped keratome, the anterior chamber was entered via a temporal clear cornea incision. A continuous curvilinear capsulorrhexis was created with Utrata forceps. Hydrodissection was performed with balanced salt solution (BSS) on a blunt cannula until the nucleus was able to rotate freely. The crystalline lens was phacoemulsified and aspirated. Irrigation/aspiration was used to remove the cortical material. Cohesive viscoelastic was placed into the capsular bag to deepen it. The implant was placed into the capsular bag and allowed to unfold. Placement was confirmed by visualizing the anterior capsulorrhexis. Irrigation/aspiration was used to remove the viscoelastic. The clear corneal incision was hydrated with BSS on a blunt cannula. The lens was well positioned. The incisions were then tested for leaks and found to be negative. The eye was then palpated for appropriate pressure and adjusted accordingly with BSS. The eyelid speculum was then carefully removed. A shield was placed over the eye. The patient tolerated the procedure well and was discharged to the recovery unit in a stable condition.
== END 2019-03-11 10:25 | disposition home or self-care (01) ==
LOC: M SDC 08:09
PROVIDERS: ATTEND Ophthalmology
DX: H25.12 Age-related nuclear cataract, left eye (principal); I10 Essential (primary) hypertension; J44.9 Chronic obstructive pulmonary disease, unspecified; E78.5 Hyperlipidemia, unspecified; I73.9 Peripheral vascular disease, unspecified; Z98.61 Coronary angioplasty status; Z79.82 Long term (current) use of aspirin; Z79.899 Other long term (current) drug therapy; Z79.51 Long term (current) use of inhaled steroids; F17.210 Nicotine dependence, cigarettes, uncomplicated
CPT/HCPCS: 66984; J2250; J3010; V2632

== ENCOUNTER → 2019-03-19 | Outpatient (CLI) | payer MEDICARE ==
[~2019-03-19] MED LIST changes: -BALANCED SALT IRRIGATION SOLUTION 500ML BAG (FOR OR EYE MACHINE) As Ordered ONE; -DUOVISC (0.50ML VISCOAT/0.55ML PROVISC) OPHTH KIT As Ordered ONE; -LIDOCAINE 0.75%/EPINEPHRINE 0.025% IN BSS 0.8ML SYR INTRACAMERAL--OR ONLY As Ordered ONE; -MIDAZOLAM INJ 2 MG/2 ML VIAL (J2250) As Ordered ONE; -OFLOXACIN 0.3 % (OCUFLOX) OPTH SOL 5ML OS ONE; -PHENYLEPHRINE 2.5% OPHTH SOL 2ML OS ONE; -POVIDONE-IODINE 5% OPHTH PREP SOL 30ML As Ordered ONE; -PROPARACAINE 0.5% OPHTH SOL 15ML OS ONE; -TROPICAMIDE 1% OPHTH SOLN 2ML OS ONE; -fentaNYL 100 MCG/2 ML INJECTION (J3010) As Ordered ONE
--- NOTE | 2019-03-19 11:35 | REP ---
Abdominal aorta ultrasound: Abdominal Aortic Measurements are as follows: Proximal 2.3 cm AP 2.3 cm TRV Renal Artery Level 2.1 cm AP 2.8 cm TRV Mid Aorta 2.9 cm AP 3.0 cm TRV Distal Aorta 5.4 cm AP four point a cm TRV R Iliac Artery 1.2 cm AP 1.3 cm TRV L Iliac Artery 0.9 cm AP 1.4 cm TRV There is an aneurysm of the distal abdominal aorta measuring 5.4 x 4.8 centimeters and traversing a craniocaudad distance of 12.2 cm. The aneurysm extends into the proximal common iliac arteries. There is an aortobi-iliac endovascular stent. The stent is patent. There is thrombus within the aneurysm. Electronically Signed by Nikhil Thomas MD 03/19/2019 11:26 A
--- NOTE | 2019-03-19 13:01 | REP ---
RENAL ULTRASOUND WITH DUPLEX DOPPLER RENAL ARTERY EVALUATION: Real-time sonographic evaluation of the kidneys performed. Right kidney is again noted to be atrophic 8.3 x 3.8 x 2.9 cm. Left kidney measures 12.6 x 5.9 x 5.2 cm. There is no hydronephrosis bilaterally. Cyst in the upper pole of the right kidney measures 1.3 x 0.9 x 0.7 cm and a cyst in the lower pole of the right kidney 1.3 x 0.8 x 1.0 cm. A cyst in the lower pole of the left kidney measures 2.2 cm in diameter. Real-time ultrasound evaluation and duplex Doppler interrogation of the renal arteries is performed bilaterally. Peak systolic velocity of the abdominal aorta at the level of the renal arteries is 50.1 cm/s. Peak systolic velocity of the main right renal artery is 316 cm/s at its origin, renal to aortic ratio is 6.3. Resistive indices and acceleration times could not be obtained in the upper and middle aspects of the right kidney. In the lower pole resistive index 0.49 and acceleration time is 0.27. The main right renal artery bifurcates in its mid aspect, and at the origin of one of these bifurcated arteries the peak systolic velocity is 237.5 cm/s. On the left the peak systolic velocity in the main renal artery is 162 cm/s, renal to aortic ratio is 3.2. Resistive indices of the left kidney range between 0.57 and 0.71. Acceleration times range between 0.031 and 0.042. IMPRESSION: Right renal atrophy. Bilateral renal cysts. There appears to be a significant stenosis at the origin of the main right renal artery and likely at the origin of one of the bifurcated right renal arteries at the mid aspect of the main right renal artery. No definite duplex Doppler sonographic evidence of left renal artery stenosis. Electronically Signed by Nikhil Robison MD 03/23/2019 08:49 A
== END ==
LOC: M RAD 08:43
PROVIDERS: ATTEND Physician Assistant
DX: I71.4 Abdominal aortic aneurysm, without rupture (principal); I70.1 Atherosclerosis of renal artery

== ENCOUNTER → 2019-04-16 | Outpatient (CLI) | payer MEDICARE ==
--- NOTE | 2019-04-16 15:25 | REP ---
Bilateral lower extremity arterial duplex ultrasound: Right lower extremity: Brachial peak systole: 195 mmHg. Dorsalis pedis peak systole: 100 mmHg. CODING SUPPORT SPECIALIST peak systole: Occluded. WILLIAM:-- Peak Systolic Phasicity Velocity VIBRATING SCREED OPERATOR the 93 monophasic Profunda 105 monophasic SFA prox occluded -- SFA mid occluded -- SFA dist revasc -- Pop 36 -- MARYANN prox 17 monophasic Tib/P tr 43 monophasic CODING SUPPORT SPECIALIST pr 26 monophasic CODING SUPPORT SPECIALIST dst occluded -- MARYANN dst 29 -- Left lower extremity: Brachial peak systole: 150 mmHg. Dorsalis pedis peak systole: 160 mmHg. CODING SUPPORT SPECIALIST peak systole: 140 mmHg. WILLIAM:-- Peak Systolic Phasicity Velocity VIBRATING SCREED OPERATOR 200 biphasic Profunda 183 biphasic SFA prox 118 48 biphasic SFA mid 91 225 biphasic SFA dist 225 103 biphasic Pop 65 biphasic MARYANN prox 43 biphasic Tib/P tr 60 biphasic CODING SUPPORT SPECIALIST pr 7 monophasic CODING SUPPORT SPECIALIST dst 13 monophasic MARYANN dst 66 biphasic The patients iliac stents are patent. The right SFA is occluded proximal to distal. There are two vessels revascularizing the proximal popliteal artery. There is slow flow throughout the right lower extremity. The right CODING SUPPORT SPECIALIST is occluded distally. In the left lower extremity there is stenosis of the common femoral artery. There are are multiple stenosis in the SFA. There is slow flow in the left CODING SUPPORT SPECIALIST. Electronically Signed by Nikhil Thomas MD 04/16/2019 03:16 P
== END ==
LOC: M RAD 12:17
PROVIDERS: ATTEND Physician Assistant
DX: I70.293 Other atherosclerosis of native arteries of extremities, bilateral legs (principal); Z95.820 Peripheral vascular angioplasty status with implants and grafts

== ENCOUNTER → 2021-02-15 | Outpatient (REF) | payer MEDICARE ==
[~2021-02-15] MED LIST changes: -AMLO10TA5 PO; +AMLO1TAB25 PO; +ISOS1TAB35 PO; -ISOS30TA4 PO; -VALS320T PO; +VALS320T2 PO
== END ==
LOC: M LAB REF 17:03
PROVIDERS: ATTEND Internal Medicine Nephrology
DX: N18.32 Chronic kidney disease, stage 3b (principal)

== ENCOUNTER → 2021-03-23 | Outpatient (CLI) | payer MEDICARE ==
--- NOTE | 2021-03-24 13:16 | REP ---
INDICATION: PAD COMPARISON: 04/16/2019 TECHNIQUE: Real time robison scale and color Doppler evaluation of the distal aorta and bilateral lower extremity arterial vasculature using curved array and linear high frequency transducers. FINDINGS: Patent aortoiliac stents extending into the right and left common iliac arteries. The left stent appears patent and without stenosis. There is 4:1 stenosis in the right common iliac artery. Right aortoiliac stent at distal aorta: 46.7 cm/sec Left aortoiliac stent at distal aorta: 103 cm/sec Right common iliac artery: 208 cm/sec (monophasic) Left common iliac artery: 133 cm/sec (triphasic) Right external iliac artery: 146 cm/sec (monophasic) Left common iliac artery: 139 cm/sec (biphasic) Robison scale and color images of the bilateral lower extremities demonstrates severe partially calcified atheromatous plaquing with predominately monophasic wave patterns throughout the right lower extremity and on the left beginning at the level of the proximal superficial femoral artery. There appears to be a graft at the right common femoral artery. There is area of occlusion and revascularization involving the proximal right superficial femoral artery with very poor flow and areas of occlusion suggested in the mid femoral artery with subsequent revascularization noted at the distal femoral artery as well as area of occlusion involving the distal posterior tibial artery. There is 3:1 stenosis involving the proximal through mid left femoral artery along with short segment of occlusion in the distal femoral artery followed by revascularization at the level of the popliteal artery as well as very poor flow distally with segments of occlusion in the proximal/distal posterior tibial artery and subsequent revascularization at the level of the ankle. Peak systolic velocities (cm/sec) Common femoral artery: Right 91.3; Left 138 Profunda femoris: Right 126; Left 179 SFA (proximal): Right occlusion/37.3; Left 124/23 SFA (mid): Right 9.4/occlusion; Left 26 SFA (distal): Right 43.9; Left 91 Popliteal artery: Right 42.7; Left 42 MARYANN (prox.): Right 74.1; Left 54 Tibioperoneal trunk: Right 91.3; Left 48 AUTOMATIC EMBROIDERY MACHINE TENDER (prox.): Right 34.2; Left 8.0/occlusion AUTOMATIC EMBROIDERY MACHINE TENDER (distal): Right occlusion; Left occlusion/19.1 MARYANN (distal): Right 80.7; Left 92.8 IMPRESSION: Diffuse significant atheromatous plaquing and areas of stenosis and occlusion throughout the visualized distal aorta/aortoiliac stents and bilateral lower extremities as described above. Findings are similar to prior examinations of 2019. <Electronically signed by Ricky Yang > 03/24/21 [id number]
== END ==
LOC: M RAD 14:22
PROVIDERS: ATTEND Surgery Vascular Surgery
DX: I70.213 Atherosclerosis of native arteries of extremities with intermittent claudication, bilateral legs (principal); I70.313 Atherosclerosis of unspecified type of bypass graft(s) of the extremities with intermittent claudication, bilateral legs; Z95.818 Presence of other cardiac implants and grafts

== ENCOUNTER → 2021-09-24 | Outpatient (CLI) | payer MEDICARE ==
[~2021-09-24] MED LIST changes: +ISOVUE-370 76% 100ML VIAL As Ordered ONE; +LOSA100T45 PO; -LOSA100T50 PO; +LOSA25TA13 PO; -LOSA25TA14 PO
== END ==
LOC: M RAD 13:52
PROVIDERS: ATTEND Physician Assistant
DX: I70.211 Atherosclerosis of native arteries of extremities with intermittent claudication, right leg (principal); I70.0 Atherosclerosis of aorta; Z95.820 Peripheral vascular angioplasty status with implants and grafts; I70.1 Atherosclerosis of renal artery
CPT/HCPCS: 75635; Q9967

== ENCOUNTER → 2021-12-18 | Outpatient (REF) | payer MEDICARE ==
[~2021-12-18] MED LIST changes: -ISOVUE-370 76% 100ML VIAL As Ordered ONE
[2021-12-19 16:15] LABS: POTASSIUM SERUM 3.9 MEQ/L (3.5-5.1)
== END ==
LOC: M LAB REF 13:03
PROVIDERS: ATTEND Nurse Practitioner Family
DX: N18.32 Chronic kidney disease, stage 3b (principal); E83.42 Hypomagnesemia

== ENCOUNTER → 2022-06-28 | Outpatient (REF) | payer MEDICARE ==
[2022-06-28 19:15] LABS: PERCENT SATURATION 15.8 % (13.2-45.0)
[2022-06-28 19:17] LABS: FERRITIN 108.7 NG/ML (7.3-270.7)
== END ==
LOC: M LAB REF 16:14
PROVIDERS: ATTEND Internal Medicine
DX: I25.10 Atherosclerotic heart disease of native coronary artery without angina pectoris (principal); N18.32 Chronic kidney disease, stage 3b; D64.9 Anemia, unspecified

== ENCOUNTER 2022-09-08 09:06 | Emergency (ER) | payer MEDICARE ==
[~2022-09-08] VITALS: Ht 170.2 cm; Wt 65.5 kg
[2022-09-08] MEDS ORDERED: **hydrALAZINE** 10 MG TAB PO ONE (10:10)
[2022-09-08] MEDS ORDERED: ISOSORBIDE MON. (IMDUR) 30MG XR TAB PO ONE (10:10)
[2022-09-08] MEDS ORDERED: hydroCHLOROthiazide 12.5 MG CAPSULE PO ONE (10:10)
[2022-09-08] MEDS ORDERED: FUROSEMIDE 20 MG TAB PO ONE (10:10)
[2022-09-08] MEDS ORDERED: VALSARTAN 80 MG TAB (DIOVAN) PO ONE (10:10)
[2022-09-08] MEDS ORDERED: MORPHINE 4 MG/ML 1ML VIAL IV ONE ×2 (10:20→13:55)
[2022-09-08 11:40] LABS: APPEARANCE, URINE HAZY (CLEAR); BACTERIA, URINE AUTO 1+ (NEGATIVE); BILIRUBIN, URINE AUTO NEGATIVE (NEGATIVE); BLOOD, URINE BLOOD 1+ (NEGATIVE); COLOR, URINE YELLOW (YELLOW); GLUCOSE, URINE (UA) AUTO NEGATIVE (NEGATIVE); KETONE, URINE AUTO NEGATIVE (NEGATIVE); LEUKOCYTE ESTERASE, URINE AUTO 2+ (NEGATIVE); NITRITE, URINE AUTO NEGATIVE (NEGATIVE); PROTEIN, URINE AUTO 2+ mg/dL (NEGATIVE); RBC, URINE AUTO 5 /HPF (0-3); SPECIFIC GRAVITY URINE AUTO 1.008 (1.002-1.035); SQUAMOUS EPITHELIAL CELL UR AU 6 /HPF (0-6); UROBILINOGEN, URINE AUTO 0.2 mg/dL (0.0-2.0); WBC, URINE AUTO 18 /HPF (0-3)
[2022-09-08] MEDS ORDERED: ISOVUE-370 76% 100ML VIAL As Ordered ONE (12:37)
[2022-09-08 14:12] VITALS: BP 190/90
[2022-09-08 14:31] LABS: BASO # 0.1 10^3/uL (0.0-0.2); EOS # 0.1 10^3/uL (0.0-0.5); EOS % 0.7 % (0.0-3.0); HEMATOCRIT 36.9 % (36.0-47.0); HEMOGLOBIN 12.6 g/dl (12.0-15.5); LYMPH # 1.9 10^3/uL (1.5-5.0); MEAN CORPUSCULAR HEMOGLOBIN 31.7 pg (27.0-33.0); MEAN CORPUSCULAR HGB CONC 34.1 g/dl (32.0-36.5); MEAN CORPUSCULAR VOLUME 92.7 fl (80.0-96.0); MONO # 0.5 10^3/uL (0.0-0.8); MONO % 7.1 % (2.0-8.0); NEUTROPHILS # 4.3 10^3/uL (1.5-8.5); NEUTROPHILS % 62.9 % (36.0-66.0); PLATELET COUNT, AUTOMATED 199 10^3/uL (150-450); RED BLOOD COUNT 3.98 10^6/uL (4.00-5.40); WHITE BLOOD COUNT 6.8 10^3/uL (4.0-10.0)
[2022-09-08 14:50] LABS: INR 1.63; PROTHROMBIN TIME 19.6 SECONDS (12.5-14.5)
[2022-09-08 15:03] LABS: ALBUMIN 3.7 G/DL (3.2-5.2); BILIRUBIN,DIRECT 0.1 MG/DL (<0.4); BILIRUBIN,TOTAL 0.6 MG/DL (0.3-1.2); CALCIUM LEVEL 8.7 MG/DL (8.3-10.6); CREATININE FOR GFR 1.19 MG/DL (0.55-1.30); GLOMERULAR FILTRATION RATE 47.7 (>39); POTASSIUM SERUM 4.1 MMOL/L (3.5-5.1); TOTAL PROTEIN 6.6 G/DL (5.7-8.2)
[2022-09-08] MEDS ORDERED: NS 1,000 ML IV SCH (15:25)
[2022-09-08 16:23] VITALS: BP 204/100
== END 2022-09-08 16:35 | disposition short-term general hospital (02) ==
LOC: EDBD 09:06 → M ED 09:06
DX: I71.40 Abdominal aortic aneurysm, without rupture, unspecified (principal); N28.89 Other specified disorders of kidney and ureter; N28.9 Disorder of kidney and ureter, unspecified; Z95.828 Presence of other vascular implants and grafts; W01.198A Fall on same level from slipping, tripping and stumbling with subsequent striking against other object, initial encounter; Y93.E5 Activity, floor mopping and cleaning; I25.2 Old myocardial infarction; E11.9 Type 2 diabetes mellitus without complications; I10 Essential (primary) hypertension; J44.9 Chronic obstructive pulmonary disease, unspecified; Z79.82 Long term (current) use of aspirin; Z79.899 Other long term (current) drug therapy; Z88.8 Allergy status to other drugs, medicaments and biological substances
CPT/HCPCS: 71101; 72131; 73502; 74177; 80047; 80048; 80076; 81001; 83690; 85025; 85610; 87635; 93005; 96374; 96376; 99284; Q9967

== ENCOUNTER → 2023-01-27 | Outpatient (REF) | payer MEDICARE ==
[~2023-01-27] MED LIST changes: -LOSA100T45 PO; +LOSA100T46 PO
[2023-01-27 18:35] LABS: PERCENT SATURATION 9.2 % (13.2-45.0)
[2023-01-27 18:36] LABS: FERRITIN 196.7 NG/ML (7.3-270.7)
== END ==
LOC: M LAB REF 16:56
PROVIDERS: ATTEND Internal Medicine
DX: D64.9 Anemia, unspecified (principal)

== ENCOUNTER → 2023-10-21 | Outpatient (REF) | payer MEDICARE ==
[2023-10-21 17:50] LABS: PERCENT SATURATION 21.2 % (13.2-45.0)
[2023-10-21 17:54] LABS: FERRITIN 245.2 NG/ML (7.3-270.7)
== END ==
LOC: M LAB REF 16:38
PROVIDERS: ATTEND Internal Medicine
DX: D50.9 Iron deficiency anemia, unspecified (principal)

== ENCOUNTER → 2024-02-05 | Outpatient (REF) | payer MEDICARE ==
[2024-02-05 19:16] LABS: PERCENT SATURATION 16.2 % (13.2-45.0)
[2024-02-05 19:17] LABS: FERRITIN 328.6 NG/ML (7.3-270.7)
== END ==
LOC: M LAB REF 16:35
PROVIDERS: ATTEND Internal Medicine
DX: D50.9 Iron deficiency anemia, unspecified (principal); R53.83 Other fatigue

== ENCOUNTER → 2024-02-12 | Outpatient (REF) | payer MEDICARE ==
[2024-02-12 17:54] LABS: PERCENT SATURATION 24.8 % (13.2-45.0)
[2024-02-12 17:56] LABS: FERRITIN 333.4 NG/ML (7.3-270.7)
== END ==
LOC: M LAB REF 16:50
PROVIDERS: ATTEND Nurse Practitioner Family
DX: D50.9 Iron deficiency anemia, unspecified (principal)

== ENCOUNTER → 2024-03-16 | Outpatient (REF) | payer MEDICARE ==
[2024-03-16 18:45] LABS: FOLATE 3.7 NG/ML (>5.4)
== END ==
LOC: M LAB REF 17:38
PROVIDERS: ATTEND Nurse Practitioner Family
DX: D64.9 Anemia, unspecified (principal)

== ENCOUNTER → 2024-05-27 | Outpatient (CLI) | payer MEDICARE ==
[~2024-05-27] MED LIST changes: +GASTROGRAFIN SOLUTION 30ML As Ordered ONE
== END ==
LOC: M RAD 11:56
PROVIDERS: ATTEND Internal Medicine
DX: I71.43 Infrarenal abdominal aortic aneurysm, without rupture (principal); K80.20 Calculus of gallbladder without cholecystitis without obstruction; D48.7 Neoplasm of uncertain behavior of other specified sites; R19.00 Intra-abdominal and pelvic swelling, mass and lump, unspecified site; Z90.5 Acquired absence of kidney
CPT/HCPCS: 74176; Q9963

== ENCOUNTER → 2024-09-09 | Outpatient (CLI) | payer MEDICARE ==
[~2024-09-09] MED LIST changes: -GASTROGRAFIN SOLUTION 30ML As Ordered ONE
== END ==
LOC: M RAD 11:31
PROVIDERS: ATTEND Internal Medicine
DX: K76.0 Fatty (change of) liver, not elsewhere classified (principal); K80.20 Calculus of gallbladder without cholecystitis without obstruction; K76.89 Other specified diseases of liver

== ENCOUNTER → 2025-06-06 | Outpatient (REF) | payer MEDICARE | LOC: M LAB REF 14:34 | PROVIDERS: ATTEND Internal Medicine | DX: N18.5 Chronic kidney disease, stage 5 (principal) ==